=== PATIENT | female | born 1985 | race Caucasian/White ===

== ENCOUNTER 2019-03-12 12:22 | Outpatient (CLI) | payer OTHER | END 2019-03-12 12:33 | disposition home or self-care (01) | LOC: SONOGRAMA 12:22 | DX: N20.0 Calculus of kidney (principal) ==

== ENCOUNTER 2019-06-04 00:20 | Inpatient (IN) | payer OTHER ==
[~2019-06-04] VITALS: Ht 162.6 cm; Wt 78.5 kg
[2019-06-04] MEDS ORDERED: PRENATAL TABLE1 EAC1 PO (01:04)
[2019-06-04] MEDS ORDERED: MAXFE CAPLET1 EACH PO (01:05)
== END 2019-06-06 12:40 | disposition home or self-care (01) | DRG 833 ==
LOC: LDR 00:20 → OB/GYN 06-05 08:12
PROVIDERS: ADMIT Obstetrics & Gynecology
PROC: 4A1HXCZ Monitoring of Products of Conception, Cardiac Rate, External Approach (ICD-10-PCS; principal; 2019-06-04)
DX: O47.03 False labor before 37 completed weeks of gestation, third trimester (principal); Z34.83 Encounter for supervision of other normal pregnancy, third trimester

== ENCOUNTER 2019-06-09 10:12 | Outpatient (CLI) | payer OTHER ==
[~2019-06-09 10:12] MED LIST: MAXFE CAPLET1 EACH PO; PRENATAL TABLE1 EAC1 PO
[2019-06-10] MEDS ORDERED: PRENATAL TABLE1 EACH PO (20:54)
[2019-06-10] MEDS ORDERED: NIFE60TA3 PO (21:01)
== END 2019-06-09 11:27 | disposition home or self-care (01) ==
LOC: NST 10:12
DX: Z34.83 Encounter for supervision of other normal pregnancy, third trimester (principal)

== ENCOUNTER 2019-06-10 20:28 | Inpatient (IN) | payer OTHER ==
[~2019-06-10] VITALS: Ht 162.6 cm; Wt 2.7 kg
[2019-06-10] MEDS ORDERED: PRENATAL TABLE1 EACH PO (20:54)
[2019-06-10] MEDS ORDERED: NIFE60TA3 PO (21:01)
== END 2019-06-23 09:47 | disposition home or self-care (01) | DRG 783 ==
LOC: OBS/DEL 20:28 → ICU 06-11 07:28 → LDR 06-11 07:28 → ICU 06-12 11:01 → OB/GYN 06-20 14:35
PROVIDERS: Obstetrics & Gynecology Maternal & Fetal Medicine; ADMIT Obstetrics & Gynecology
PROC: BB24YZZ Computerized Tomography (CT Scan) of Bilateral Lungs using Other Contrast (ICD-10-PCS; 2019-06-11)
PROC: 4A033R1 Measurement of Arterial Saturation, Peripheral, Percutaneous Approach (ICD-10-PCS; 2019-06-11)
PROC: 4A12X4Z Monitoring of Cardiac Electrical Activity, External Approach (ICD-10-PCS; 2019-06-11)
PROC: 4A1HXCZ Monitoring of Products of Conception, Cardiac Rate, External Approach (ICD-10-PCS; 2019-06-11)
PROC: B246ZZZ Ultrasonography of Right and Left Heart (ICD-10-PCS; 2019-06-12)
PROC: 0UL70ZZ Occlusion of Bilateral Fallopian Tubes, Open Approach (ICD-10-PCS; 2019-06-16)
PROC: 10D00Z1 Extraction of Products of Conception, Low, Open Approach (ICD-10-PCS; principal; 2019-06-16 06:45)
DX: O82 Encounter for cesarean delivery without indication (principal); O60.03 Preterm labor without delivery, third trimester; I50.31 Acute diastolic (congestive) heart failure; J16.8 Pneumonia due to other specified infectious organisms; J90 Pleural effusion, not elsewhere classified; J98.11 Atelectasis; R09.02 Hypoxemia; I08.1 Rheumatic disorders of both mitral and tricuspid valves; I11.0 Hypertensive heart disease with heart failure; O99.513 Diseases of the respiratory system complicating pregnancy, third trimester; Z3A.35 35 weeks gestation of pregnancy; Z37.0 Single live birth; Z30.2 Encounter for sterilization